=== PATIENT | female | born 1980 | race African-American/Black ===

== ENCOUNTER 2020-04-22 23:25 | Emergency (ER) | payer BC, MEDICAID ==
[~2020-04-22] VITALS: Ht 162.6 cm; Wt 72.0 kg
[2020-04-23 00:55] LABS: BASOPHILS % 0.9 % (0.0-2.0); EOSINOPHILS % 1.8 % (0.0-5.0); HEMATOCRIT. 36.3 % (36.0-48.0); HEMOGLOBIN. 12.3 g/dL (12.0-16.0); LYMPHOCYTES % 44.7 % (20.0-50.0); MEAN CORPUSCULAR HEMOGLOBIN 31.3 pg (28.0-32.0); MEAN CORPUSCULAR VOLUME 92.6 fL (81.0-99.0); MEAN PLATELET VOLUME 8.4 fl (7.4-10.4); NEUTROPHILS % 47.6 % (40.0-76.0); PLATELET 268 x1000/uL (130-400); RED BLOOD CELL COUNT 3.92 mill/uL (4.2-5.4); RED CELL DISTRIBUTION WIDTH 13.5 % (11.6-14.6)
[2020-04-23 01:01] LABS: CHLORIDE 106 mEq/L (98-107)
[2020-04-23 01:10] LABS: HCG SCREEN NEGATIVE
[2020-04-23 01:43] LABS: COLOR URINE YELLOW (YELLOW); KETONES URINE NEGATIVE (NEGATIVE); LEUKOCYTE ESTERASE URINE NEGATIVE (NEGATIVE); NITRITE URINE NEGATIVE (NEGATIVE); OCCULT BLOOD URINE 2+ (NEGATIVE); PH URINE 6.5 (4.5-8.0); PROTEIN URINE NEGATIVE (NEGATIVE); SPECIFIC GRAVITY URINE 1.016 (1.005-1.030); UROBILINOGEN URINE 0.2 E.U./dL (0.2-1.0)
[2020-04-23 02:21] LABS: CLARITY URINE HAZY (CLEAR)
[2020-04-23 03:08] VITALS: BP 112/63
== END 2020-04-23 03:10 | disposition home or self-care (01) ==
LOC: ER 23:25
DX: R10.31 Right lower quadrant pain (principal); Z98.890 Other specified postprocedural states
CPT/HCPCS: 36415; 74176; 80053; 81003; 84703; 85025; 99284

== ENCOUNTER 2020-07-27 06:37 | Emergency (ER) | payer BC, MEDICAID ==
[~2020-07-27] VITALS: Ht 162.6 cm; Wt 75.0 kg
[2020-07-27 08:15] VITALS: BP 100/42
== END 2020-07-27 08:23 | disposition home or self-care (01) ==
LOC: ER 06:37
DX: Z20.822 Contact with and (suspected) exposure to COVID-19 (principal); B34.9 Viral infection, unspecified
CPT/HCPCS: 71045; 87635; 87804; 93005; 99285; C9803